=== PATIENT | female | born 1985 | race Caucasian/White ===

== ENCOUNTER 2018-06-05 01:20 | Outpatient (CLI) | payer BC | END 2018-06-05 23:59 | disposition home or self-care (01) | LOC: DIABETIC 01:20 | PROVIDERS: ATTEND Surgery | DX: E66.01 Morbid (severe) obesity due to excess calories (principal) | CPT/HCPCS: 97802 ==

== ENCOUNTER 2018-07-01 04:48 | Outpatient (CLI) | payer BC | END 2018-07-01 23:59 | disposition home or self-care (01) | LOC: DIABETIC 04:48 | PROVIDERS: ATTEND Surgery | DX: E66.01 Morbid (severe) obesity due to excess calories (principal) | CPT/HCPCS: 97802 ==

== ENCOUNTER 2018-08-05 02:32 | Outpatient (CLI) | payer BC | END 2018-08-05 23:59 | disposition home or self-care (01) | LOC: DIABETIC 02:32 | PROVIDERS: ATTEND Surgery | DX: E66.01 Morbid (severe) obesity due to excess calories (principal) | CPT/HCPCS: 97802 ==

== ENCOUNTER 2018-09-02 01:32 | Outpatient (CLI) | payer BC | END 2018-09-02 23:59 | disposition home or self-care (01) | LOC: DIABETIC 01:32 | PROVIDERS: ATTEND Surgery | DX: E66.01 Morbid (severe) obesity due to excess calories (principal); Z71.3 Dietary counseling and surveillance | CPT/HCPCS: 97802 ==

== ENCOUNTER 2018-09-29 08:00 | Outpatient (CLI) | payer BC | END 2018-09-29 23:59 | disposition home or self-care (01) | LOC: DIABETIC 08:00 | PROVIDERS: ATTEND Surgery | DX: Z71.3 Dietary counseling and surveillance (principal); E66.01 Morbid (severe) obesity due to excess calories; Z68.42 Body mass index [BMI] 45.0-49.9, adult | CPT/HCPCS: 97802 ==

== ENCOUNTER 2019-03-20 04:48 | Outpatient (CLI) | payer BC | END 2019-03-20 23:59 | disposition home or self-care (01) | LOC: DIABETIC 04:48 | PROVIDERS: ATTEND Surgery | DX: E66.01 Morbid (severe) obesity due to excess calories (principal) | CPT/HCPCS: 97803 ==

== ENCOUNTER 2019-06-23 04:18 | Outpatient (CLI) | payer BC | END 2019-06-23 23:59 | disposition home or self-care (01) | LOC: DIABETIC 04:18 | PROVIDERS: ATTEND Surgery | DX: E66.01 Morbid (severe) obesity due to excess calories (principal) | CPT/HCPCS: 97803 ==

== ENCOUNTER 2023-09-20 16:05 | Emergency (ER) | payer BC, OTHER ==
[~2023-09-20] VITALS: Ht 172.7 cm; Wt 108.7 kg
[2023-09-20 16:06] VITALS: BP 134/86; PULSE 78; O2SAT 99
[2023-09-20] MEDS ORDERED: CEPH-585 PO (16:41)
[2023-09-20 16:47] VITALS: RESP 18; TEMP 98.5
== END 2023-09-20 16:48 | disposition home or self-care (01) ==
LOC: ER 16:05
DX: N61.0 Mastitis without abscess (principal); Z88.8 Allergy status to other drugs, medicaments and biological substances
CPT/HCPCS: 87070; 87077; 87186; 99283